=== PATIENT | male | born 1955 | race Caucasian/White ===

== ENCOUNTER 2019-12-03 15:04 | Inpatient (IN) ==
[2019-12-03 15:41] LABS: BASO% 0.9 % (0.0-0.8); EOS# 0.44 X1000 (0.0-0.7); EOS% 3.8 % (0.0-10.0); HEMATOCRIT 48.3 % (42.0-52.0); HEMOGLOBIN 15.7 g/dL (14.0-18.0); LYMPH# 2.16 X1000 (1.2-3.4); LYMPH% 18.7 % (20.5-51.1); MCH 31.5 PG (27-31); MCHC 32.5 g/dL (33-37); MONO# 1.14 X1000 (0.11-0.59); MONO% 9.8 % (1.7-9.3); MPV 10.3 FL (7.4-10.4); NEUT# 7.74 X1000 (1.4-6.5); NEUT% 66.8 % (42.2-75.2); PLT 187 X1000 (130-400); RBC 4.98 XMIL (4.7-6.1); RDW 15.2 % (11.5-14.5); WBC 11.58 X1000 (4.8-10.8)
[2019-12-03 16:05] LABS: AGAP 14; ALB/GLOB RATIO 1.9; ALBUMIN 4.4 g/dL (3.5-5.0); ALKALINE PHOSPHATASE 76 U/L (32-122); BUN 17 mg/dL (8-22); CHLORIDE 105 mmol/L (98-107); CK PROFILE 74 U/L (24-204); COSMO 283; CREATININE 0.9 mg/dL (0.7-1.2); ESTIMATED GFR > 60; GLUCOSE 106 mg/dL (70-104); GOT 17 U/L (10-34); GPT 22 U/L (10-44); SODIUM 141 mmol/L (136-145); TCO2 22 mmol/L (25-35); TOTAL BILIRUBIN 0.61 mg/dL (0.20-1.00); TOTAL PROTEIN 6.7 g/dL (6.3-8.3)
[2019-12-03] MEDS ORDERED: LASIX IV ONE (16:11)
--- NOTE | 2019-12-03 16:15 | EKG Report ---
Test Performed on : 12/03/2019 3:11:38 PM Test Reason : cp /sob Blood Pressure : / mmHG Vent. Rate : 112 BPM Atrial Rate : 112 BPM P-R Int : 172 ms QRS Dur : 140 ms QT Int : 384 ms P-R-T Axes : 022 -57 088 degrees QTc Int : 524 ms Sinus tachycardia. Right bundle branch block Left anterior fascicular block Bifascicular block Left ventricular hypertrophy with repolarization abnormality Cannot rule out Septal infarct , age undetermined Abnormal ECG No previous ECGs available Unconfirmed Result
[2019-12-03] MEDS: DUONEB (A & A) INH ONE ×3 (16:27→16:29)
[2019-12-03 17:13] LABS: URINE SOURCE CLEAN CATCH
[2019-12-03 17:17] LABS: BILIRUBIN URINE NEGATIVE (NEGATIVE); BLOOD URINE NEGATIVE (NEGATIVE); COLOR YELLOW; GLUCOSE URINE NEGATIVE (NEGATIVE); KETONE URINE NEGATIVE (NEGATIVE); LEUKOCYTES URINE NEGATIVE (NEGATIVE); NITRITE URINE NEGATIVE (NEGATIVE); PROTEIN URINE TRACE mg/dL (NEGATIVE); TURBIDITY URINE CLEAR (CLEAR); UROBILINOGEN URINE NORMAL (NORMAL)
[2019-12-03 17:18] LABS: INR 0.99; PROTIME 13.2 Seconds (11.0-16.0)
[2019-12-03 17:18] LABS: UR EPITHELIAL CELLS <10 /HPF (<10); URINE BACTERIA NEGATIVE /HPF; URINE RBC <10 /HPF (<10); URINE WBC <10 /HPF (<10)
[2019-12-03 17:41] LABS: PTT 26.7 Seconds (22.3-41.8)
--- NOTE | 2019-12-03 17:53 | Diag Imaging Result Doc PS360 ---
EXAM: CHEST-1 VIEW INDICATION: sob TECHNIQUE: One view COMPARISON: None. FINDINGS: The central vasculature is prominent indicating pulmonary venous congestion and there is interstitial thickening bilaterally with a basilar predominance indicating pulmonary edema. There is no discrete pleural fluid collection or pneumothorax. Cardiac silhouette appears prominent. IMPRESSION: Findings suggesting pulmonary edema and pulmonary venous congestion as described. Electronically signed by Дмитрий Vanegas 12/03/2019 5:51 PM
[2019-12-03] MEDS ORDERED: ZITHROMAX 500 MG/NS 500 MG/250 ML IVPB IV SCH ×2 (19:00→22:50)
[2019-12-03] MEDS ORDERED: ROCEPHIN 1 GM in NS 50 ML IV SCH (19:00)
[2019-12-03] MEDS ORDERED: NICODERM PATCH TD ONE (19:24)
--- NOTE | 2019-12-03 21:54 | PROVIDER DOCUMENTATION ---
This chart was entered by Saundra Gutiérrez Scribe, acting as scribe for Ting Jennings MD. HPI-Respiratory General - General Chief Complaint: Chest Pain Stated Complaint: CP Time Seen by Provider: 12/03/19 15:14 Source: patient, family (daughter) Allergies/Adverse Reactions: Patient Allergies Allergy/AdvReac Type Severity Reaction Status Date / Time Penicillins Allergy Intermediate HIVES Verified 12/03/19 15:47 Home Medications: Home Medication List Medication Instructions Recorded Confirmed Last Taken Type Furosemide [Lasix] 1 tab PO DAILY 12/03/19 12/03/19 Unknown History LISINOpril [Prinivil] 1 tab PO DAILY 12/03/19 12/03/19 Unknown History Lovastatin 1 tab PO DAILY 12/03/19 12/03/19 Unknown History Metformin [Glucophage] 1 tab PO DAILY 12/03/19 12/03/19 Unknown History Sulindac 1 tab PO BID 12/03/19 12/03/19 Unknown History - History of Present Illness-Resp Nature of Presenting Problem: 63 yom presents to the ed with c/o worsening sob for 1 week, ble edema and chest pain with exertion only. pt has O2 sat of 89% on RA and was placed on NC via 3LPM and is now 97%. pt has been off her Lasix for 1 week. pt denies any cardiac work up in the past. pt is nontoxic in appearance Quality of Pain: reports: aching Severity in ED: reports: mild Onset/Duration: reports: 1 week ago Timing: reports: still present, intermittent, getting worse Cough Quality/Degree: reports: mild, dry cough Episode Frequency: chronic episodes Current Respiratory Medication Therapy: Initiated see nurses note Modifying Factors: improves with: oxygen, sitting upright. worse with: exertion Associated Symptoms: reports: chest pain/soreness, cough, shortness of breath Similar Symptoms Previously?: Yes Recently seen or treated by another doctor?: Yes Review of Systems - Adult - REVIEW OF SYSTEMS - ADULT Constitutional: denies: chills, fever Eyes: reports: no symptoms reported Ears, Nose, Mouth & Throat: reports: no symptoms reported Cardiovascular: reports: see HPI, chest pain, edema. denies: palpitations, syncope Respiratory: reports: see HPI, cough, dyspnea on exertion, shortness of breath Gastrointestinal: denies: diarrhea, nausea, vomiting Genitourinary: reports: no symptoms reported Musculoskeletal: denies: back pain, neck pain Integumentary: reports: no symptoms reported Neurological: reports: no symptoms reported Psychiatric: reports: no symptoms reported Endocrine: reports: no symptoms reported Hematologic/Lymphatic: reports: no symptoms reported Allergic/Immunologic: reports: no symptoms reported All Other Systems: Reviewed and Negative Past History - Adult - PAST MEDICAL HISTORY-ADULT Review of Records: reports: Old Records Reviewed, Nursing Assessment Review, Medications Reviewed, Social history reviewed & non-contributory. Major Childhood Illnesses: reports: denies history Cardiovascular: reports: HTN Respiratory: reports: COPD Gastrointestinal: reports: denies history Obstetrical/Gynecological: reports: denies history Genitourinary: reports: denies history Musculoskeletal: reports: orthopedic injury (broke ankle requiring surgical repair earlier this year) Neurological: reports: denies history Psychiatric: reports: denies history Endocrine/Immune: reports: Diabetes Diabetes Type: Type 2 Other Conditions: reports: denies history - PRIOR SURGERIES/PROCEDURES Surgical/Procedure History: reports: orthopedic (extremity) - IMMUNIZATION STATUS Childhood Immunizations: See Nurse Assessment Flu Vaccine: See Nurse Assessment - FAMILY HISTORY Family History: reviewed, not pertinent - SOCIAL HISTORY Smoking: cigarettes, greater than 1 pack/day Provider spent 3-5 mins advising pt. on dangers of tobacco.: Discussed manners to quit use, and f/u contacts for add'l counseling. Substance Use: alcohol Alcohol Use Frequency: every day Living Situation: family Physical Exam-General - PHYSICAL EXAM-ADULT Initial Vital Signs Reviewed: Yes (noted BP-166/122 HR-109 RR_25 O2 sat RA- 89%) - CONSTITUTIONAL General Appearance: alert, mild distress, obese - EYES Eyes: PERRL/EOMI, pink conjunctivae - HEAD, EARS, NOSE, MOUTH & THROAT HENMT: moist mucous membranes - NECK Neck: non-tender, full range of motion, supple, normal inspection - RESPIRATORY Respiratory: respiratory distress, decreased breath sounds, crackles, increased rate (25) - CARDIOVASCULAR Cardiovascular: normal peripheral pulses, tachycardia (109) - CHEST (BREASTS) Chest/Breast: deferred - GASTROINTESTINAL (ABDOMEN) Abdominal Exam: normal bowel sounds, non tender, soft - GENITOURINARY Male Genitalia: deferred Rectal Exam: deferred Hemoccult Exam: deferred - LYMPHATIC Lymphatic: no adenopathy - MUSCULOSKELETAL Back Exam: no CVA tenderness, no vertebral tenderness Extremity: normal range of motion, normal capillary refill, pelvis stable, swelling (BLE 2+) - SKIN Integumentary: normal color, normal turgor, warm/dry - NEUROLOGIC Neurologic: grossly normal - PSYCHIATRIC Psych/Mental Status: normal mood/affect, normal thought content, normal thought process, oriented x 3 - HEART Score HEART Score: History: Moderately Suspicious HEART Score: ECG: Non-Specific Repolarization Disturbance/LBBB/PM HEART Score: Age: 45-65 Years HEART Score: Risk Factors for Atherosclerotic Disease: > or = 3 Risk Factors or History of Atherosclerotic Disease HEART Score: Troponin: 1-3x Normal Limit (Moderate risk) Total HEART Score:: 6 Progress - PLAN OF CARE/RESULTS Progress/Plan/Lab Results: Vital Signs - 8 hr 12/03/19 15:22 12/03/19 16:15 12/03/19 20:40 Temperature 98.5 F Pulse Rate 109 H 112 H 94 H Respiratory Rate 25 H 30 H Blood Pressure 166/122 167/114 O2 Sat by Pulse Oximetry 89 L 95 97 Laboratory Results - last 24 hr 12/03/19 12/03/19 12/03/19 15:22 15:22 15:22 WBC RBC Hgb Hct MCV MCH MCHC RDW Std Deviation Plt Count MPV Immature Gran % (Auto) Neut % (Auto) Lymph % (Auto) [place] % (Auto) Eos % (Auto) Baso % (Auto) Immature Gran # (Auto) Neut # (Auto) Lymph # (Auto) [place] # (Auto) Eos # (Auto) Baso # (Auto) PT INR PTT (Actin FS) Sodium 141 Potassium 5.0 Chloride 105 Carbon Dioxide 22 L Anion Gap 14 BUN 17 Creatinine 0.9 Estimated GFR/1.73 m2 > 60 BUN/Creatinine Ratio 19 Glucose 106 H Calculated Osmolality 283 Calcium 9.0 Total Bilirubin 0.61 AST 17 ALT 22 Alkaline Phosphatase 76 Creatine Kinase 74 Troponin T High Sens 40 H Asw-A-Ggwrezhhqlx Pept Total Protein 6.7 Albumin 4.4 Globulin 2.3 Albumin/Globulin Ratio 1.9 Plasma Lactate 1.7 Urine Source Urine Color Urine Turbidity Urine pH Ur Specific [place] Urine Protein Ur Glucose (Stick) Ur Ketones (Stick) Urine Blood Urine Nitrite Urine Bilirubin Urobilinogen Dipstick Urine Leukocytes Urine WBC (Auto) Urine RBC (Auto) U Epithel Cells (Auto) Urine Bacteria (Auto) 12/03/19 12/03/19 12/03/19 15:22 15:22 15:22 WBC 11.58 H RBC 4.98 Hgb 15.7 Hct 48.3 MCV 97.0 MCH 31.5 H MCHC 32.5 L RDW Std Deviation 15.2 H Plt Count 187 MPV 10.3 Immature Gran % (Auto) 0.0 Neut % (Auto) 66.8 Lymph % (Auto) 18.7 L [place] % (Auto) 9.8 H Eos % (Auto) 3.8 Baso % (Auto) 0.9 H Immature Gran # (Auto) 0.00 Neut # (Auto) 7.74 H Lymph # (Auto) 2.16 [place] # (Auto) 1.14 H Eos # (Auto) 0.44 Baso # (Auto) 0.10 PT 13.2 INR 0.99 PTT (Actin FS) 26.7 Sodium Potassium Chloride Carbon Dioxide Anion Gap BUN Creatinine Estimated GFR/1.73 m2 BUN/Creatinine Ratio Glucose Calculated Osmolality Calcium Total Bilirubin AST ALT Alkaline Phosphatase Creatine Kinase Troponin T High Sens Ikq-[id number]-Rlzqiefdboe Pept 4267 H Total Protein Albumin Globulin Albumin/Globulin Ratio Plasma Lactate Urine Source Urine Color Urine Turbidity Urine pH Ur Specific [place] Urine Protein Ur Glucose (Stick) Ur Ketones (Stick) Urine Blood Urine Nitrite Urine Bilirubin Urobilinogen Dipstick Urine Leukocytes Urine WBC (Auto) Urine RBC (Auto) U Epithel Cells (Auto) Urine Bacteria (Auto) 12/03/19 12/03/19 17:05 19:05 WBC RBC Hgb Hct MCV MCH MCHC RDW Std Deviation Plt Count MPV Immature Gran % (Auto) Neut % (Auto) Lymph % (Auto) [place] % (Auto) Eos % (Auto) Baso % (Auto) Immature Gran # (Auto) Neut # (Auto) Lymph # (Auto) [place] # (Auto) Eos # (Auto) Baso # (Auto) PT INR PTT (Actin FS) Sodium Potassium Chloride Carbon Dioxide Anion Gap BUN Creatinine Estimated GFR/1.73 m2 BUN/Creatinine Ratio Glucose Calculated Osmolality Calcium Total Bilirubin AST ALT Alkaline Phosphatase Creatine Kinase Troponin T High Sens Apf-L-Gtmyvxmapco Pept Total Protein Albumin Globulin Albumin/Globulin Ratio Plasma Lactate 1.3 Urine Source CLEAN CATCH Urine Color YELLOW Urine Turbidity CLEAR Urine pH 6.0 Ur Specific [place] 1.010 Urine Protein TRACE A Ur Glucose (Stick) NEGATIVE Ur Ketones (Stick) NEGATIVE Urine Blood NEGATIVE Urine Nitrite NEGATIVE Urine Bilirubin NEGATIVE Urobilinogen Dipstick NORMAL Urine Leukocytes NEGATIVE Urine WBC (Auto) <10 Urine RBC (Auto) <10 U Epithel Cells (Auto) <10 Urine Bacteria (Auto) NEGATIVE Orders Category Date Time Status Cardiac Monitoring NOW Care 12/03/19 15:25 Active IV Insertion NOW Care 12/03/19 15:25 Completed NEWS Score >or=5:Order NEWS Bundle S.O. NOW Care 12/03/19 15:24 Active Notify Provider of NEWS Score NOW Care 12/03/19 15:25 Active CHEST-1 VIEW [RAD] Stat Exams 12/03/19 15:25 Completed BLOOD CULTURE [BLDCUL] Stat Lab 12/03/19 16:14 Results CBC WITH DIFF [HEME] Stat Lab 12/03/19 15:22 Completed CK PROFILE [SP CHEM] Stat Lab 12/03/19 15:22 Completed COMPREHENSIVE METABOLIC PANEL [CHEM] Stat Lab 12/03/19 15:22 Completed LACTATE, PLASMA [CHEM] Lab 12/03/19 19:05 Completed LACTATE, PLASMA [CHEM] Lab 12/03/19 21:30 Uncollected LACTATE, PLASMA [CHEM] Q3H Lab 12/03/19 15:22 Completed PRO B-NATRIURETIC PEPTIDE Stat Lab 12/03/19 15:22 Completed PROTIME WITH INR [COAG] Stat Lab 12/03/19 15:22 Completed PTT [COAG] Stat Lab 12/03/19 15:22 Completed TROPONIN T HIGH SENSITIVITY Stat Lab 12/03/19 15:22 Completed TROPONIN T HIGH SENSITIVITY Stat Lab 12/03/19 19:06 Uncollected TROPONIN T HIGH SENSITIVITY Stat Lab 12/03/19 19:13 Uncollected URINALYSIS W/POSS RFLX CULT [URINALYSIS] Stat Lab 12/03/19 17:05 Completed Albuterol 2.5MG/Ipratrop 0.5MG [Duoneb (A & A)] Med 12/03/19 16:08 Discontinued 9 ml INH NOW ONE Azithromycin 500 mg/Ns [Zithromax 500 mg/Ns] Med 12/03/19 19:00 Active 500 mg in 250 ml IV Q24H CefTRIAXONE [Rocephin] 1 gm Med 12/03/19 19:00 Active 0.9% Sodium Chloride Inj [Ns] 50 ml IV Q24H Furosemide [Lasix] Med 12/03/19 16:11 Discontinued 60 mg IV NOW ONE Nicotine Patch [Nicoderm Patch] Med 12/03/19 19:24 Discontinued 21 mg TD NOW ONE Aerosol Treatments Routine Oth 12/03/19 16:08 Completed Aerosol Treatments Stat Oth 12/03/19 16:08 Completed O2 Per Protocol Stat Oth 12/03/19 15:25 Completed EKG [EKG] Stat Ther 12/03/19 15:25 Draft EKG [EKG] Stat Ther 12/03/19 19:06 Ordered EKG [EKG] Stat Ther 12/03/19 19:13 Ordered Transfer/Admit Order [TRANSFER] Routine Transfer 12/03/19 21:22 Ordered Result Diagrams: 12/03/19 15:22 12/03/19 15:22 - REASSESSMENT Reassessment #1 Time Reassessed: 17:55 Status: improving (pt is resting in bed in no obvious distress) - EKG 1 Time of EKG reading by physician:: 15:30 EKG Read and Signed by:: Ting Jennings Rate: 112 Rhythm: Sinus tachycardia [place]: left QRS: RBB, other (LAFB) Prior EKG Comparison: no prior EKG - XRAY 1 XRAY: Bilateral XRAY Study: Chest Impression: See EMR Report (EXAM: CHEST-1 VIEW INDICATION: sob TECHNIQUE: One view COMPARISON: None. FINDINGS: The central vasculature is prominent i ndicating pulmonary venous congestion and there is interstitial thickening bilaterally with a basilar predominance indicating pulmonary edema. There is no discrete pleural fluid collection or pneumothorax. Cardiac silhouette appears prominent. IMPRESSION: Findings suggesting pulmonary edema and pulmonary venous congestion as described. Electronically signed by Дмитрий Vanegas 12/03/2019 5:51 PM 12/03/191750 Interpreting Physician: Дмитрий Vanegas MD Dictated Date/Time: 12/03/191749 cc: Ting Jennings MD; None,PCP) - CONSULTS/PCP/HOSPITALIST Notification #1 *Consult/PCP/Hospitalist*: Hospitalist Time Discussed: 19:20 Consult Disposition: Admit Departure - Departure Date of Disposition Decision: 12/03/19 Time of Disposition Decision: 19:12 DIAGNOSIS: Elevated troponin, COPD with exacerbation Heart failure Qualifiers: Heart failure type: unspecified Heart failure chronicity: acute on chronic Qualified Code(s): I50.9 - Heart failure, unspecified Disposition: ADMITTED INPATIENT 09 Certified Medical Emergency: Emergent Condition: Stable Referrals and Follow-Ups: None,PCP [Primary Care Provider] - Discharge Education: Steps to Quit Smoking, [id number] - Critical Care Note This patient required my direct & personal management of CC.: No Attestation - Physician/ DIETER Attestation Patient care was provided by Advanced Practice Provider:: No The physician spent face to face time with patient:: Yes Advanced Practice Provider documentation review:: Supervising physician onsite and consulted in the evaluation and care of this patient. The physician did have a face to face encounter with the patient. This chart was documented by the indicated scribe, (Saundra Gutiérrez Scribe) and accurately reflects the services I performed and decisions made by me, Ting Jennings MD, as attested by the provider's signature.
[2019-12-03] MEDS: ROCEPHIN 1 GM in NS 50 ML IV SCH (22:50)
[2019-12-03] MEDS ORDERED: ZOFRAN IV PRN (22:50)
--- NOTE | 2019-12-03 22:54 | HISTORY AND PHYSICAL ---
PRIMARY CARE PHYSICIAN: Dr. Ovalle. CHIEF COMPLAINT: Shortness of breath x1 week. HISTORY OF PRESENTING ILLNESS: This is a 63-year-old male with a history of hypertension, diabetes mellitus type 2, COPD, who presented to emergency department with 1-week history of progressive shortness of breath. The patient states that he was having difficulty breathing even with minimal exertion. He was seen in the ER. His O2 saturation was decreased. He was put on supplemental oxygen and it improved. He was started on DuoNebs and he was also given diuresis with Lasix. He will require admission for further management. At the time of my examination, patient denied any headache, fever, chills, chest pain, hemoptysis, melena, but complained of lower extremity edema, shortness of breath and not feeling well. PAST MEDICAL HISTORY: Includes hypertension, diabetes mellitus type 2, COPD. PAST SURGICAL HISTORY: Left elbow surgery, pelvic surgery, right shoulder surgery. ALLERGIES: Penicillin. CURRENT MEDICATIONS: Furosemide 40 mg p.o. daily, lisinopril 20 mg p.o. daily, lovastatin 40 mg p.o. daily, metformin 500 mg p.o. daily, sulindac 150 mg p.o. b.i.d. SOCIAL HISTORY: Fifty pack years history of smoking. Admits to social alcohol use. Denies any illicit drug use. FAMILY HISTORY: No history of coronary disease. REVIEW OF SYSTEMS: Fourteen point review of system is as in HPI. Other systems negative physical. PHYSICAL EXAMINATION: GENERAL: Cooperative, friendly male. He is resting more comfortably now. VITAL SIGNS: Temperature 98.5 degrees, pulse 109, respirations 25, blood pressure 166/122. HEENT: Atraumatic, normocephalic. Extraocular movements intact. PERRLA. NECK: No masses. CHEST: Bibasilar rales. CARDIOVASCULAR: Regular rate and rhythm. ABDOMEN: Soft. Positive bowel sounds. EXTREMITIES: +1 edema. NEUROLOGIC: She is awake, alert, oriented x3. : No bladder distention. SKIN: Warm. LABORATORIES AND STUDIES: WBC 11.58, hemoglobin 15.7, hematocrit 48.3, platelets 187,000, sodium 141, potassium 5.0, chloride 105, CO2 is 22, BUN is 17, creatinine 0.9, glucose is 106. ProBNP is 4267. Chest x-ray shows pulmonary edema. ASSESSMENT: A 63-year-old male with a history of hypertension, diabetes mellitus type 2 and chronic obstructive pulmonary disease who presented to the emergency department with a 1-week history of progressive shortness of breath. He was evaluated in the emergency department. He was put on supplemental oxygen, and he will require admission for further management. ASSESSMENT: 1. Acute chronic obstructive pulmonary disease exacerbation. 2. Congestive heart failure, unspecified. 3. Hypertension, uncontrolled. 4. Diabetes mellitus type 2. PLAN: 1. We will admit patient to medical floor with telemetry. 2. We will continue with DuoNebs and supplemental oxygen. 3. We will continue diuresis with Lasix and check echocardiogram. 4. Monitor blood pressure closely and resume antihypertensive agent. 5. Monitor blood glucose. We will put patient on sliding scale insulin regimen. 6. We will put patient on DVT prophylaxis with SCDs. 7. We will continue to follow, reassess and make further recommendations based on patient's clinical course. cc: Joselo Barbosa MD
[2019-12-03] MEDS: DUONEB (A & A) INH SCH (23:35)
[2019-12-04] MEDS: LASIX IV SCH ×3 (00:28→22:54)
[2019-12-04] MEDS: DUONEB (A & A) INH SCH ×6 (03:33→23:25)
[2019-12-04] MEDS: HUMULIN R SUBQ SCH ×4 (06:16→23:02)
[2019-12-04 07:54] LABS: BASO# 0.06 X1000 (0.0-0.2); BASO% 0.6 % (0.0-0.8); EOS# 0.58 X1000 (0.0-0.7); EOS% 6.3 % (0.0-10.0); HEMATOCRIT 47.7 % (42.0-52.0); HEMOGLOBIN 15.5 g/dL (14.0-18.0); IMM GRAN# 0.02 X1000 (0.0-0.04); IMM GRAN% 0.2 % (0.0-0.5); LYMPH# 1.77 X1000 (1.2-3.4); LYMPH% 19.1 % (20.5-51.1); MCH 31.4 PG (27-31); MCHC 32.5 g/dL (33-37); MCV 96.8 FL (81-99); MONO# 0.97 X1000 (0.11-0.59); MONO% 10.5 % (1.7-9.3); MPV 10.2 FL (7.4-10.4); NEUT# 5.87 X1000 (1.4-6.5); NEUT% 63.3 % (42.2-75.2); PLT 169 X1000 (130-400); RBC 4.93 XMIL (4.7-6.1); RDW 15.1 % (11.5-14.5); WBC 9.27 X1000 (4.8-10.8)
[2019-12-04 08:14] LABS: AGAP 11; BUN 17 mg/dL (8-22); CALCIUM 8.8 mg/dL (8.8-10.2); CHLORIDE 101 mmol/L (98-107); COSMO 281; CREATININE 0.9 mg/dL (0.7-1.2); ESTIMATED GFR > 60; GLUCOSE 100 mg/dL (70-104); SODIUM 140 mmol/L (136-145); TCO2 28 mmol/L (25-35)
[2019-12-04 08:22] LABS: HEMOGLOBIN A1C 5.5 % (4.8-6.0)
[2019-12-04] MEDS: CLINORIL PO SCH ×2 (09:16→22:54)
[2019-12-04] MEDS: LOVENOX SUBQ SCH (09:16)
[2019-12-04] MEDS: PRINIVIL PO SCH (09:16)
[2019-12-04] MEDS ORDERED: TYLENOL PO PRN (15:27)
--- NOTE | 2019-12-04 16:02 | PROGRESS NOTE ---
DATE: 12/04/2019 SUBJECTIVE: Patient has no major complaints. OBJECTIVE: Vital Signs: Blood pressure is 139/89, heart rate of 86, respiratory rate of 20, temperature 97.5 degrees, O2 saturation 98% on room air. Cardiovascular: Regular rate and rhythm. Pulmonary: Bilateral breath sounds clear to auscultation. Gastrointestinal: Soft. Nontender, nondistended. Bowel sounds are positive. LABORATORY DATA: White count is 9, hemoglobin and hematocrit 15 and 47, platelets 169,000. Basic was okay. PROBLEM LIST: 1. Acute chronic obstructive pulmonary disease exacerbation, at least presumably. He is on breathing treatments, not really on any steroids. I think I am going to add some Solu-Medrol. Continue breathing treatments, antibiotics and follow. He is still having some wheezing. 2. Acute congestive heart failure exacerbation. Unsure if this is systolic or other. We are going to look at that, so we will continue to follow. Awaiting echo results, but we will continue diuresis for now based on the chest x-ray findings. 3. Dyslipidemia. Continue his regular medications. 4. I am not sure if he is still smoking, but we will counseling psychologist him on not smoking. So we will see how things look, so hopefully another day or two here depending on his clinical status. cc: Humberto Jacobson MD
[2019-12-04] MEDS: SOLU-MEDROL IV SCH (16:20)
--- NOTE | 2019-12-04 19:33 | ECHO REPORT ---
ORDER DATE: 12/04/2019 INDICATION: CHF. REQUESTING PHYSICIAN: Dr.Brian Barbosa. M-MODE MEASUREMENTS: Left ventricle end diastole: 5.5. Left ventricle end systole: 4.6. Posterior wall: 1.2. Interventricular septum: 1.2. Left atrium: 5.1. Aortic diameter: 4.5. SUMMARY OF 2-DIMENSIONAL IMAGIN. The study was difficult. Optison was added to optimize visualization of the endocardium. 2. The left ventricular chamber is dilated. Left ventricular systolic function is significantly impaired, estimated at 25% to 30%. Impairment is global. There is no wall motion abnormality. 3. The mitral valve shows a moderate degree of regurgitation. 4. Pulse wave Doppler of mitral inflow shows a pseudonormal pattern with a tall E-wave and a short A-wave. 5. Tissue Doppler of septal and lateral mitral annulus averages 5 cm. There is impaired left ventricular relaxation and elevation of left atrial pressure, consistent with diastolic dysfunction. 6. The left atrium is significantly enlarged. 7. The tricuspid valve shows a mild to moderate degree of regurgitation. Pulmonary pressure is estimated at 36 to 41 mmHg. 8. The pulmonic valve is normal. 9. The aortic valve looks normal with a mild degree of regurgitation. 10.There is no pericardial effusion, no mass, and no thrombus. 11.The right-sided chambers appear to be mildly enlarged. SUMMARY: This study is consistent with a dilated cardiomyopathy. Clinical correlation recommended. cc: MD Joselo Le MD
[2019-12-04] MEDS: NICODERM PATCH TD PRN (22:51)
[2019-12-04] MEDS: ROCEPHIN 1 GM in NS 50 ML IV SCH (22:53)
[2019-12-04] MEDS: MEVACOR PO SCH (22:53)
[2019-12-05] MEDS: SOLU-MEDROL IV SCH ×2 (02:54→16:40)
[2019-12-05] MEDS: DUONEB (A & A) INH SCH ×6 (03:25→23:35)
[2019-12-05] MEDS: PRILOSEC PO SCH (06:58)
[2019-12-05] MEDS: HUMULIN R SUBQ SCH ×4 (06:58→21:39)
[2019-12-05 07:56] LABS: BASO# 0.01 X1000 (0.0-0.2); BASO% 0.1 % (0.0-0.8); EOS# 0.01 X1000 (0.0-0.7); EOS% 0.1 % (0.0-10.0); HEMOGLOBIN 15.9 g/dL (14.0-18.0); IMM GRAN# 0.02 X1000 (0.0-0.04); IMM GRAN% 0.2 % (0.0-0.5); LYMPH# 0.64 X1000 (1.2-3.4); LYMPH% 7.2 % (20.5-51.1); MCH 31.4 PG (27-31); MCHC 33.1 g/dL (33-37); MCV 94.9 FL (81-99); MONO# 0.18 X1000 (0.11-0.59); MPV 10.5 FL (7.4-10.4); NEUT# 8.02 X1000 (1.4-6.5); NEUT% 90.4 % (42.2-75.2); PLT 201 X1000 (130-400); RBC 5.06 XMIL (4.7-6.1); RDW 14.6 % (11.5-14.5); WBC 8.88 X1000 (4.8-10.8)
[2019-12-05 08:21] LABS: AGAP 11; BUN 20 mg/dL (8-22); CALCIUM 9.3 mg/dL (8.8-10.2); CHLORIDE 99 mmol/L (98-107); COSMO 280; ESTIMATED GFR > 60; GLUCOSE 156 mg/dL (70-104); POTASSIUM 4.2 mmol/L (3.5-5.1); SODIUM 137 mmol/L (136-145); TCO2 27 mmol/L (25-35)
[2019-12-05 08:44] LABS: ANISOCYTOSIS 2+; LYMPHS 7 % (21-51); MONO 2 % (1-9); SEGS 91 % (42-75)
[2019-12-05 08:45] LABS: POIKILOCYTOSIS 1+
[2019-12-05] MEDS: LOVENOX SUBQ SCH (10:35)
[2019-12-05] MEDS: ZITHROMAX PO SCH (10:35)
[2019-12-05] MEDS: PRINIVIL PO SCH (10:35)
[2019-12-05] MEDS: LASIX IV SCH ×2 (10:35→21:51)
[2019-12-05] MEDS: CLINORIL PO SCH ×2 (10:36→21:52)
--- NOTE | 2019-12-05 11:51 | Diag Imaging Result Doc PS360 ---
EXAM: CHEST-2 VIEWS 12/05/2019 HISTORY: hypoxia TECHNIQUE: Two views the chest COMMENT: There is blunting of the right costophrenic angle. As may be due to a small pleural effusion. There is platelike atelectasis over the right base. The cardiomegaly, increased pulmonary vascularity, and interstitial pulmonary edema which was present on 12/03/2019 has largely resolved. IMPRESSION: Small right pleural effusion with basilar atelectasis. Electronically signed by Ruel Conner 12/05/2019 11:48 AM
--- NOTE | 2019-12-05 19:06 | PROGRESS NOTE ---
DATE: 12/05/2019 SUBJECTIVE: Patient has no major complaints. OBJECTIVE: Vital Signs: Blood pressure 134/71, heart rate 83, respiratory rate 20, temperature 97.9 degrees. Cardiovascular: Regular rate and rhythm. Pulmonary: Bilateral breath sounds clear to auscultation. Gastrointestinal: Abdomen was soft, nontender, nondistended. Bowel sounds are positive. LABORATORY DATA: White count 8, hemoglobin and hematocrit 15 and 48, platelets 201,000. Basic was normal. PROBLEM LIST: 1. Acute chronic obstructive pulmonary disease exacerbation. We will continue breathing treatments. He is on some low-dose steroids. I will probably wean those a bit and he seems like his wheezing is better. Overall, he has improved. 2. Congestive heart failure exacerbation. He is currently on IV diuretics. His chest x-ray shows improvement. His echocardiogram shows an EF of 25 to 30 percent, so he does have systolic heart failure, which is an established diagnosis. We will continue diuretics. He seems to be doing a bit better. He is on an KAHLIL inhibitor. He is not on any beta blockers, but he does have COPD. We may consider some low-dose Lopressor and see how he does. DISPOSITION: Pending clinical status. I think he will probably be here at least another 24 hours and then he is going to need some home oxygen as well. cc: Humberto Jacobson MD
[2019-12-05] MEDS: LOPRESSOR PO SCH (21:51)
[2019-12-05] MEDS: NICODERM PATCH TD PRN (21:51)
[2019-12-05] MEDS: ROCEPHIN 1 GM in NS 50 ML IV SCH (21:51)
[2019-12-05] MEDS: MEVACOR PO SCH (21:51)
[2019-12-06] MEDS: DUONEB (A & A) INH SCH ×4 (03:25→16:19)
[2019-12-06] MEDS ORDERED: SOLU-MEDROL IV SCH (05:00)
[2019-12-06] MEDS: HUMULIN R SUBQ SCH ×3 (06:23→16:26)
[2019-12-06] MEDS: PRILOSEC PO SCH (07:03)
[2019-12-06 08:20] LABS: BASO# 0.03 X1000 (0.0-0.2); BASO% 0.3 % (0.0-0.8); EOS# 0.05 X1000 (0.0-0.7); EOS% 0.4 % (0.0-10.0); HEMATOCRIT 47.5 % (42.0-52.0); HEMOGLOBIN 15.3 g/dL (14.0-18.0); IMM GRAN# 0.03 X1000 (0.0-0.04); IMM GRAN% 0.3 % (0.0-0.5); LYMPH% 13.4 % (20.5-51.1); MCH 31.3 PG (27-31); MCHC 32.2 g/dL (33-37); MCV 97.1 FL (81-99); MONO# 0.94 X1000 (0.11-0.59); MONO% 8.4 % (1.7-9.3); MPV 10.4 FL (7.4-10.4); NEUT# 8.62 X1000 (1.4-6.5); NEUT% 77.2 % (42.2-75.2); PLT 201 X1000 (130-400); RBC 4.89 XMIL (4.7-6.1); RDW 14.9 % (11.5-14.5); WBC 11.17 X1000 (4.8-10.8)
[2019-12-06 08:47] LABS: AGAP 12; BUN 22 mg/dL (8-22); CALCIUM 9.2 mg/dL (8.8-10.2); CHLORIDE 101 mmol/L (98-107); COSMO 287; ESTIMATED GFR > 60; GLUCOSE 114 mg/dL (70-104); POTASSIUM 4.4 mmol/L (3.5-5.1); SODIUM 142 mmol/L (136-145); TCO2 29 mmol/L (25-35)
[2019-12-06] MEDS: ZITHROMAX PO SCH (09:10)
[2019-12-06] MEDS: PRINIVIL PO SCH (09:10)
[2019-12-06] MEDS: LOPRESSOR PO SCH (09:10)
[2019-12-06] MEDS: LOVENOX SUBQ SCH (09:10)
[2019-12-06] MEDS: LASIX IV SCH (09:11)
[2019-12-06] MEDS: CLINORIL PO SCH (09:11)
[2019-12-06] MEDS ORDERED: FLU VACCINE IM ONE (09:16)
[2019-12-06] MEDS ORDERED: PNEUMOVAX 23 IM ONE (09:17)
[2019-12-06] MEDS ORDERED: CYANOCOBALAMIN IM ONE (15:39)
[2019-12-06 16:20] VITALS: BP 136/85
== END 2019-12-06 17:11 | disposition home or self-care (01) | DRG 190 ==
LOC: ED 15:04 → SUATTDRO 22:31 → 3N 22:31
PROVIDERS: ATTEND Internal Medicine